=== PATIENT | female | born 1975 | race Caucasian/White ===

== ENCOUNTER → 2020-12-07 | Outpatient (CLI) | payer SELFPAY ==
[~2020-12-07] MED LIST: ASPI81TA59 PO; DEXT15CA5 PO; DOCU50CA9 PO; GABA-585 PO; HYDR-2761 PO
--- NOTE | 2020-12-08 08:53 | KCIC ---
CT LOWER RIGHT EXTREMITY WITHOUT CONTRAST History: Closed displaced fracture body of right calcaneus. Comparison: Ankle radiographs 12/03/2020 Technique: Noncontrast CT of the right ankle. Findings: The tibiofibular and tibiotalar joints are within normal limits. The talar dome is intact. There is a complex comminuted fracture of the calcaneus. Fracture lucencies extend into the subtalar joints in multiple locations. The calcaneocuboid joint is not involved. No fracture is seen in the na vicular, talus, cuboid or visualized portions of the cuneiform bones. The Achilles tendon, flexor, peroneal and extensor tendons are grossly intact. There is diffuse soft tissue swelling. Impression: 1. Comminuted intra-articular fracture of the calcaneus. ------ Exposure: One or more of the following individualized dose reduction techniques were utilized for thi s examination: 1. Automated exposure control 2. Adjustment of the mA and/or kV according to patient size 3. Use of iterative reconstruction technique. Electronically signed by: Ruperto Alonso MD (12/08/2020 8:50 AM) [facility]
== END ==
LOC: KCIC CT 15:02
PROVIDERS: ATTEND Podiatrist
DX: S92.011A Displaced fracture of body of right calcaneus, initial encounter for closed fracture (principal); M79.89 Other specified soft tissue disorders; X58.XXXA Exposure to other specified factors, initial encounter; Y93.89 Activity, other specified; Y92.89 Other specified places as the place of occurrence of the external cause; Y99.8 Other external cause status
CPT/HCPCS: 73700

== ENCOUNTER 2020-12-10 07:02 | Day surgery (SDC) | payer SELFPAY ==
[~2020-12-10] VITALS: Ht 162.6 cm; Wt 59.0 kg
[~2020-12-10 07:02] MED LIST changes: -ASPI81TA59 PO; +CLINDAMYCIN 900MG PREMIX 50 ML IV PRN; -DOCU50CA9 PO; -GABA-585 PO; +HYDROmorphone 2 MG/ML VIAL IVP PRN; +IV RINGERS,LACTATED 1000ML 1,000 ML IV SCH; +PROCHLORPERAZINE 10 MG/2 ML VIAL. IVP PRN; +fentaNYL PF VIAL 100 MCG/2 ML VIAL IVP PRN
[2020-12-10] MEDS ORDERED: BUPIVACAINE MPF 0.25% 10 ML VIAL. ONE (07:39)
[2020-12-10] MEDS ORDERED: BUPIVACAINE MPF 0.5% 30 ML VIAL. ONE (07:39)
[2020-12-10] MEDS ORDERED: PROPOFOL 10 MG/ML (20ML) VIAL. IV ONE (07:39)
[2020-12-10] MEDS ORDERED: fentaNYL PF VIAL 100 MCG/2 ML VIAL ONE ×3 (07:40→11:19)
[2020-12-10] MEDS ORDERED: DEXAMETHASONE SOD PHOS 4 MG/ML VIAL ONE ×2 (07:41→07:47)
[2020-12-10] MEDS ORDERED: LIDOCAINE 2% PF 5 ML VIAL. ONE (07:43)
[2020-12-10] MEDS ORDERED: MIDAZOLAM HCL/PF 2 MG/2 ML VIAL. ONE (07:47)
[2020-12-10] MEDS ORDERED: FAMOTIDINE 20 MG/2 ML VIAL ONE (07:47)
--- NOTE | 2020-12-10 08:00 | NUR ---
Called hospitalist line @ [phone] to page for [facility]. Dr Pérez was paged. No response as of [phone] so paged again.
[2020-12-10] MEDS ORDERED: ROCURONIUM 50 MG/5 ML VIAL. ONE (09:03)
[2020-12-10] MEDS ORDERED: VANCOMYCIN 1 GM VIAL. ONE (11:26)
[2020-12-10] MEDS ORDERED: PROCHLORPERAZINE 10 MG/2 ML VIAL. ONE (12:05)
[2020-12-10] MEDS ORDERED: MORPHINE SULFATE 2 MG/ML INJ. ONE (12:06)
[2020-12-10] MEDS ORDERED: VANCOMYCIN 1 GM VIAL. TP ONE (12:06)
[2020-12-10] MEDS: MORPHINE SULFATE 2 MG/ML INJ. IVP PRN ×2 (12:38→12:48)
--- NOTE | 2020-12-10 13:08 | RAD ---
EXAM: Right calcaneus, 2 views; right foot, 2 views. HISTORY: Calcaneal fracture. COMPARISON: None. FINDINGS: 2 views of the right calcaneus and foot are obtained. There is internal fixation of a calca ovidio fracture with 4 screws. There is fracture line extension to the subtalar joint. There is externa l casting material which limits avulsion of bony detail. IMPRESSION: Internal fixation of a calcaneal fracture. Electronically signed by: Armida Loredo MD (12/10/2020 1:06 PM) [id number]
[2020-12-10] MEDS ORDERED: ACETAMINOPHEN 325 MG TABLET. PO ONE ×2 (13:15→13:30)
[2020-12-10] MEDS ORDERED: oxyCODONE/APAP 5/325 1 TAB TABLET PO ONE (13:15)
[2020-12-10] MEDS ORDERED: GABAPENTIN 100 MG CAPSULE. PO ONE ×2 (13:15→13:30)
--- NOTE | 2020-12-10 13:18 | PDOC4 ---
OPERATIVE NOTE Date: Date: Dec 10, 2020 Pre-Op Diagnosis: Right Sung 3 AB calcaneal fracture, closed Post-Op Diagnosis: Same as above Procedure Performed: Right calcaneal open reduction and internal fixation Surgeon: Woo De La O DPM Anesthesia Type: General Blood Loss: 10 cc Specimans Obtained: None Findings: Comminuted intra-articular calcaneal fracture with both medial lateral calcaneal wall blowout. The calcaneus was short and in varus. Complications: None Operative Note: Under mild sedation, patient was brought into the operating room and placed on the operating table in a supine position. A formal timeout was performed to confirm patient's identity, procedure and procedure site. Following general anesthesia induction and IV antibiotics, a well-padded right thigh tourniquet was placed. Patient was then positioned in a lateral decubitus position with all the prominent osseous structures well-padded and protected. The right lower extremity was then scrubbed, prepped and draped. Exsanguination was achieved with an Esmarch and the tourniquet was inflated to 250 millimercury. Under intraoperative x-ray guidance, a provisional sinus tarsi incision was marked from the posterior subtalar facet extending distally to the anterior calcaneal process. A full-thickness linear incision was made over the sinus tarsi. The incision was carried to deep with a combination of sharp and blunt dissection with care to protect and retract all the neurovascular bundles. The deep fascia was incised with care to protect and preserve the peroneal tendon sheath. The peroneal tendons were distracted plantarly to allow visualization of the lateral subtalar capsule. A lateral capsulotomy was achieved with a #15 blade including the transection of the CFL without violating the ATFL. TCL was resected out to allow adequate visualization of the articular facets of fragments. EDB muscle belly was elevated minimally off the anterior calcaneal process to allow adequate visualization of the subtalar facets. Copious saline solution was used to irrigate and subtalar joint. Afterwards, we noticed a primary fracture line extending from the lateral talar process to plantar calcaneus. There was a central depressed posterior facet and anteriorly displaced to lateral portion of the posterior subtalar facet consistent with a Larson 3 AB fracture. There was also comminution and varus rotation of the lateral calcaneal wall. Then a 3 mm Schanz pin was introduced through a stab incision just lateral to the Achilles tendon following blunt dissection and care to protect the neurovascular bundles at the posterior lateral aspect of the calcaneus. Under intraoperative x-ray guidance, the tongue type fracture was captured with a Schanz pin and reduced dorsally and laterally. After adequate reduction of the articular facets was noted, using standard AO techniques, 3.0 mm partially-threaded comminuted screws were placed from lateral to medial capturing the sustentaculum ryland the constant fragment. Adequate hardware posi tion and length were confirmed with x-ray. Then another 3 mm Schanz pin was introduced from the posterior plantar aspect of calcaneus and used as a joystick to correct the varus and short calcaneal body, through a stab incision deepened through blunt dissection to periosteum. Then using standard AO techniques, two struts consisted with 4.0 and 5.0mm millimeter fully threaded screws were placed from P to A from the posterior plantar aspect of the calcaneus aiming towards the subtalar facet and anterior calcaneal process. Adequate hardware position and length were confirmed with intraoperative x-ray. The lateral calcaneal wall was noted smooth and well reduced. Intraoperative x-ray also remarked restored critical angle of Gissane and Boehler's angle. Then the surgical sites was irrigated with copious saline solution. The lateral incision wound was treated with 0.5 g of vancomycin powder. All the surgical sites were closed in layers with 3-0 Vicryl, 4 Monocryl and 4-0 nylon. Then the surgical sites were dressed with Betadine soaked Adaptic, 4 x 4 gauze. The right lower extremity was immobilized in a well-padded Stephens compression splint with modified sugar tong with ankle held near 90 degrees. Tourniquet was deflated. Adequate digital perfusion was noted afterwards. Patient was transferred to PACU for continuous recovery with vital signs stable and neurovascular status intact. Pending popliteal and saphenous block and foot 3 view x-ray along with calcaneal x-ray as well. WOO DE LA O DPM Dec 10, 2020 13:18
[2020-12-10] MEDS ORDERED: ASPI81TA59 PO (13:28)
[2020-12-10] MEDS ORDERED: DOCU50CA9 PO (13:29)
[2020-12-10 13:30] VITALS: BP 121/79
[2020-12-10] MEDS ORDERED: HYDROcodone/APAP 5/325MG 1 TAB TABLET PO ONE (13:30)
[2020-12-10] MEDS ORDERED: GABA-585 PO (13:30)
[2020-12-10] MEDS ORDERED: SENNOSIDES/DOCUSATE 8.6/50MG TABLET. PO SCH (14:00)
== END 2020-12-10 15:03 | disposition home or self-care (01) ==
LOC: SURG 07:02
PROVIDERS: ATTEND Podiatrist
DX: S92.001A Unspecified fracture of right calcaneus, initial encounter for closed fracture (principal); F41.9 Anxiety disorder, unspecified; Z98.51 Tubal ligation status; Z98.890 Other specified postprocedural states; Z79.899 Other long term (current) drug therapy; Z20.822 Contact with and (suspected) exposure to COVID-19; X58.XXXA Exposure to other specified factors, initial encounter; Y93.89 Activity, other specified; Y92.89 Other specified places as the place of occurrence of the external cause; Y99.8 Other external cause status
CPT/HCPCS: 28415; 73630; 73650; 81025; 87426; A4930; A6223; A6253; A6402; A6449; C1713; C1769; J0780; J1100; J2250; J2270; J2704; J3010; J3370; J3490; A4223; A6455